=== PATIENT | male | born 1940 | race African-American/Black ===

== ENCOUNTER → 2017-02-13 | Outpatient (CLI) | payer MEDICARE ==
[~2017-02-13] MED LIST: AMLODIPINE BESY10 MG PO; BYSTOLIC 5 MG5 M1 PO; CIALIS5 MG PO; LOSARTAN-HCTZ1 EAC2 PO; MULTI VITAMIN1 EACH PO; PERCOCET 10-321 EACH PO; XARELTO10 MG PO
== END ==
LOC: ULTRA 15:38
DX: M79.605 Pain in left leg (principal); M79.89 Other specified soft tissue disorders

== ENCOUNTER → 2017-09-25 | Outpatient (CLI) | payer BC | LOC: ULTRA 13:39 | DX: M79.662 Pain in left lower leg (principal); M79.89 Other specified soft tissue disorders ==

== ENCOUNTER → 2018-08-27 | Outpatient (CLI) | payer BC | LOC: RAD 15:22 | DX: M47.26 Other spondylosis with radiculopathy, lumbar region (principal); M48.061 Spinal stenosis, lumbar region without neurogenic claudication; M41.86 Other forms of scoliosis, lumbar region; M25.78 Osteophyte, vertebrae; I70.0 Atherosclerosis of aorta; Z88.8 Allergy status to other drugs, medicaments and biological substances ==

== ENCOUNTER → 2019-03-25 | Outpatient (CLI) | payer BC | LOC: ULTRA 14:11 | DX: M47.26 Other spondylosis with radiculopathy, lumbar region (principal); M43.26 Fusion of spine, lumbar region; M48.061 Spinal stenosis, lumbar region without neurogenic claudication; M46.06 Spinal enthesopathy, lumbar region; I82.532 Chronic embolism and thrombosis of left popliteal vein; I82.512 Chronic embolism and thrombosis of left femoral vein; M25.552 Pain in left hip; Z88.8 Allergy status to other drugs, medicaments and biological substances ==

== ENCOUNTER → 2019-05-31 | Outpatient (CLI) | payer BC | LOC: HYPER 08:28 | DX: L97.821 Non-pressure chronic ulcer of other part of left lower leg limited to breakdown of skin (principal); I82.512 Chronic embolism and thrombosis of left femoral vein; I87.2 Venous insufficiency (chronic) (peripheral); I89.0 Lymphedema, not elsewhere classified; I73.9 Peripheral vascular disease, unspecified; I25.10 Atherosclerotic heart disease of native coronary artery without angina pectoris; I10 Essential (primary) hypertension; R60.0 Localized edema; G60.3 Idiopathic progressive neuropathy; M79.605 Pain in left leg; Z96.60 Presence of unspecified orthopedic joint implant; Z85.46 Personal history of malignant neoplasm of prostate; Z87.891 Personal history of nicotine dependence; Z96.652 Presence of left artificial knee joint ==

== ENCOUNTER → 2019-06-14 | Outpatient (CLI) | payer BC | LOC: SJCVCIMAG | DX: I87.2 Venous insufficiency (chronic) (peripheral) (principal); M79.606 Pain in leg, unspecified; M79.89 Other specified soft tissue disorders ==

== ENCOUNTER → 2019-06-14 | Outpatient (CLI) | payer BC | LOC: HYPER 12:27 | DX: L97.822 Non-pressure chronic ulcer of other part of left lower leg with fat layer exposed (principal); I87.2 Venous insufficiency (chronic) (peripheral); I89.0 Lymphedema, not elsewhere classified; I82.512 Chronic embolism and thrombosis of left femoral vein; I73.9 Peripheral vascular disease, unspecified; I25.10 Atherosclerotic heart disease of native coronary artery without angina pectoris; I10 Essential (primary) hypertension; G60.3 Idiopathic progressive neuropathy; R60.0 Localized edema; M79.605 Pain in left leg; E78.00 Pure hypercholesterolemia, unspecified; Z96.652 Presence of left artificial knee joint; Z85.46 Personal history of malignant neoplasm of prostate; Z87.891 Personal history of nicotine dependence ==

== ENCOUNTER → 2019-06-21 | Outpatient (CLI) | payer BC | LOC: HYPER 12:07 | DX: I89.0 Lymphedema, not elsewhere classified (principal); I87.2 Venous insufficiency (chronic) (peripheral); I73.9 Peripheral vascular disease, unspecified; E78.00 Pure hypercholesterolemia, unspecified; R60.0 Localized edema; G60.3 Idiopathic progressive neuropathy; I82.512 Chronic embolism and thrombosis of left femoral vein; I25.10 Atherosclerotic heart disease of native coronary artery without angina pectoris; I10 Essential (primary) hypertension; Z87.891 Personal history of nicotine dependence; Z85.46 Personal history of malignant neoplasm of prostate; Z96.652 Presence of left artificial knee joint ==

== ENCOUNTER → 2020-07-07 | Outpatient (CLI) | payer MEDICARE | LOC: SJCVCIMAG 06-28 09:59 | PROVIDERS: ATTEND Internal Medicine Cardiovascular Disease | DX: R94.31 Abnormal electrocardiogram [ECG] [EKG] (principal); I45.2 Bifascicular block; I82.402 Acute embolism and thrombosis of unspecified deep veins of left lower extremity; I11.9 Hypertensive heart disease without heart failure; E78.00 Pure hypercholesterolemia, unspecified; D68.59 Other primary thrombophilia; M79.89 Other specified soft tissue disorders; I34.0 Nonrheumatic mitral (valve) insufficiency; I73.9 Peripheral vascular disease, unspecified; Z96.652 Presence of left artificial knee joint; Z98.890 Other specified postprocedural states; Z88.8 Allergy status to other drugs, medicaments and biological substances; Z79.899 Other long term (current) drug therapy; Z87.891 Personal history of nicotine dependence; Z86.718 Personal history of other venous thrombosis and embolism; Z82.49 Family history of ischemic heart disease and other diseases of the circulatory system ==